=== PATIENT | female | born 1950 | race Caucasian/White ===

== ENCOUNTER → 2021-07-07 00:12 | Outpatient (CLI) | payer MEDICARE, SELFPAY ==
[2021-07-07 17:30] LABS: SARS-CoV-2 RNA PCR Negative
== END ==
PROVIDERS: PCP Family Medicine; Visit Provider Internal Medicine Gastroenterology
DX: Z01.812 Encounter for preprocedural laboratory examination (principal); Z20.822 Contact with and (suspected) exposure to COVID-19
CPT/HCPCS: C9803; U0003; U0005

== ENCOUNTER 2021-07-10 01:48 | Day surgery (SDC) | payer MEDICARE, SELFPAY ==
[2021-06-29 13:30] VITALS: BMI 41.3
[2021-07-10 11:44] VITALS: BP 156/82; PULSE 60; RESP 18; TEMP 37; O2SAT 94
--- NOTE | 2021-07-10 11:50 | WPDANESEPPF ---
Anes - Initial Pre Proc Eval Procedure: Operation Date: 07/10/21 13:00 Proposed Procedures p Esophagogastroduodenoscopy & Screening Colonoscopy - Dewayne Guzman MD Date/Time: 07/10/21 11:50 Surgeon: Dewayne Guzman MD Pre Op Diagnosis: hx of colon polyps, iglesias's esophagus Patient Data Age: 70 Gender: F Height: 1.6 m Weight: 104 kg Last Vital Signs Temp 98.6 F 07/10/21 11:44 Pulse 60 07/10/21 11:44 Resp 18 07/10/21 11:44 BP 156/82 H 07/10/21 11:44 Pulse Ox 94 07/10/21 11:44 Allergies Allergy/AdvReac Type Severity Reaction Status Date / Time erythromycin base Allergy Unknown GI Issues Verified 07/10/21 11:42 Penicillins Allergy Unknown Rash Verified 07/10/21 11:42 Home Medications Medication Instructions Recorded Confirmed Type aspirin 81 mg tablet,delayed 81 mg PO DAILY 06/21/21 06/29/21 History release dexlansoprazole 60 mg 60 mg PO DAILY 06/21/21 06/29/21 History capsule,biphase delayed release furosemide 40 mg tablet 40 mg PO QAM 06/21/21 06/29/21 History metoprolol succinate 25 mg 25 mg PO BID 06/21/21 06/29/21 History tablet,extended release 24 hr sertraline 100 mg tablet 100 mg PO DAILY 06/21/21 06/29/21 History acyclovir 200 mg PO DAILY 06/29/21 06/29/21 History alprazolam 0.5 mg PO DAILY 06/29/21 06/29/21 History trazodone 100 mg PO DAILY 06/29/21 06/29/21 History Patient hx anesthesia problems: none Family hx anesthesia problems: none Results Review: All pre-operative results and documents have been reviewed as part of the pre-operative evaluation. [facility] Past Medical History Medical History Allergies Anxiety Asthma Headache, migraine History of blood clots History of coronary artery disease Hypertension IBS (irritable bowel syndrome) Family History Family History Father Hypertension Family history of blood dyscrasia Family history of osteoarthritis Patient's father is in good health Family history of diabetes mellitus in first degree relative Family history of hearing loss Diabetes mellitus, Onset Age: 86 Family history of cardiovascular disease, Onset Age: 86 Family history of malignant neoplasm, Onset Age: 86 Sibling Family history of migraine headaches Asthma Patient's sister is in good health Family history of allergic disorder Hypertension Grandparent Hypertension Family history of osteoarthritis Family history of alcoholism Cerebrovascular accident Family history of kidney disease Family history of seizure disorder Mother Hypertension Family history of osteoarthritis Patient's mother is in good health Family history of dementia Other Depression Family history of arthritis Family history of irritable bowel syndrome Family history of obesity Social History Social History Smoking packs per day: 2 Smoking cigarettes per day: 40.0 Years smoked: 30 Smoking pack-years: 60.00 Smoking status: Former smoker Tobacco type: cigarettes Smoking end date: 08/25/07 Alcohol intake: never Substance use: never Substance use type: does not use Living arrangements: with family Spiritual care concerns: No Anes - Eval Final PreProcedure Day of Procedure 07/10/21 11:50 Patient weight: morbidly obese Heart: regular rate and rhythm Lungs: clear to auscultation Airway: Mallampati scale class II Neurological: alert and oriented Last oral intake: >/= 8 hours ASA classification: III Emergent: no Anesthetic plan: proceed Anesthesia type and monitoring: general GIVS and standard monitoring Results Review: All pre-operative results and documents have been reviewed as part of the pre-operative evaluation. Informed Consent: The patient's anesthetic plan and its attendant risks and benefits were discussed with benigno
[2021-07-10] MEDS: LACTATED RINGERS 1,000 ML 150 ML IV CONT (11:54)
--- NOTE | 2021-07-10 12:03 | WPDHPUPDATE1 ---
History and Physical Update Update Date/Time: 07/10/21 12:03 History and Physical has been reviewed, including an updated exam of the patient. There are NO changes in the patient's condition. Risks, benefits, and alternatives have been discussed and questions answered. Patient agrees to proceed with procedure.
--- NOTE | 2021-07-10 12:18 | SUR.OPER ---
egd finish time 1215, colonoscopy start time 1218
[2021-07-10 12:30] VITALS: BP 108/57; PULSE 63; RESP 21; O2SAT 97
[2021-07-10 12:40] VITALS: BP 123/70; PULSE 61; RESP 22; O2SAT 98
[2021-07-10 12:50] VITALS: BP 124/72; PULSE 60; RESP 22; O2SAT 100
== END 2021-07-10 13:11 | disposition home or self-care (01) ==
PROVIDERS: PCP Family Medicine; Visit Provider Internal Medicine Gastroenterology
PROC: 0DJ08ZZ Inspection of Upper Intestinal Tract, Via Natural or Artificial Opening Endoscopic (ICD-10-PCS; CPT 43235; principal; 2021-07-10 13:00)
DX: Z12.11 Encounter for screening for malignant neoplasm of colon (principal); K57.30 Diverticulosis of large intestine without perforation or abscess without bleeding; K64.8 Other hemorrhoids; K22.70 Barrett's esophagus without dysplasia; K20.90 Esophagitis, unspecified without bleeding; F41.9 Anxiety disorder, unspecified; J45.909 Unspecified asthma, uncomplicated; I25.10 Atherosclerotic heart disease of native coronary artery without angina pectoris; I10 Essential (primary) hypertension; K58.9 Irritable bowel syndrome, unspecified; Z87.891 Personal history of nicotine dependence; Z79.82 Long term (current) use of aspirin; E66.01 Morbid (severe) obesity due to excess calories; Z68.41 Body mass index [BMI] 40.0-44.9, adult
CPT/HCPCS: 43239; G0105; 88305; C9803; J2704; J7120; U0003; U0005